=== PATIENT | male | born 1985 | race Hispanic/Latino ===

== ENCOUNTER 2024-04-03 13:12 | Emergency (ER) | payer OTHER ==
[~2024-04-03] VITALS: Ht 177.8 cm; Wt 86.2 kg
[2024-04-03 13:12] VITALS: TEMP 98.8
[2024-04-03 13:47] LABS: BASOPHILS % 0.2 % (0.0-1.0); EOSINOPHILS # (AUTO) 0.1 (0.0-0.4); EOSINOPHILS % 0.5 % (0.0-6.0); HEMATOCRIT 45.3 % (38.2-49.6); HEMOGLOBIN 15.4 g/dL (14.0-18.0); LYMPHOCYTES # (AUTO) 4.2 (1.0-3.2); MEAN CORPUSCULAR HEMOGLOBIN 28.9 pg (28-32); MONOCYTES # (AUTO) 0.7 (0.2-0.8); MONOCYTES % 5.6 % (4.4-11.3); NEUTROPHILS # (AUTO) 7.3 (2.1-6.9); NEUTROPHILS % 59.4 % (38.7-80.0); PLATELET COUNT 299 x10e3/uL (140-360); RED BLOOD COUNT 5.33 x10e6/uL (4.3-5.7); RED CELL DISTRIBUTION WIDTH 11.9 % (11.7-14.4); WHITE BLOOD COUNT 12.22 x10e3/uL (4.8-10.8)
[2024-04-03 14:16] LABS: ALBUMIN 4.8 g/dL (3.5-5.0); ALBUMIN/GLOBULIN RATIO 1.5 (0.8-2.0); BILIRUBIN,TOTAL 0.6 mg/dL (0.2-1.2); CREATININE, SERUM 1.47 mg/dL (0.72-1.25)
[2024-04-03 14:24] LABS: TROPONIN I 0.006 ng/mL (0-0.300)
[2024-04-03] MEDS: SODIUM CHLORIDE 0.9% 1000ML 1,000 ML IV STA (15:00)
[2024-04-03 15:37] VITALS: PULSE 87; RESP 16; O2SAT 100
== END 2024-04-03 18:54 | disposition home or self-care (01) ==
LOC: ER 13:25
DX: I47.10 Supraventricular tachycardia, unspecified (principal); I10 Essential (primary) hypertension
CPT/HCPCS: 36415; 80053; 82550; 84484; 85025; 85379; 93005; 99284; J7030